=== PATIENT | male | born 1985 | race Caucasian/White ===

== ENCOUNTER 2021-09-30 20:48 | Emergency (ER) | payer BC ==
[2021-09-30] MEDS ORDERED: Dexamethasone 10 MG/ML VIAL ONE (21:31)
[2021-09-30] MEDS ORDERED: Diazepam 5 MG TAB ONE (21:32)
[2021-09-30] MEDS ORDERED: Ibuprofen 200 MG TAB ONE (22:32)
== END 2021-09-30 23:21 | disposition home or self-care (01) ==
LOC: CSHERS 20:48
DX: M54.50 Low back pain, unspecified (principal)
CPT/HCPCS: 99283; J1100